=== PATIENT | male | born 1980 | race Caucasian/White ===

== ENCOUNTER 2018-07-28 22:02 | Emergency (ER) | payer OTHER ==
[~2018-07-28] VITALS: Ht 165.1 cm; Wt 74.0 kg
[2018-07-28] MEDS ORDERED: METOCLOPRAMIDE HCL 10MG/2ML VIAL IV ONE (22:45)
[2018-07-28] MEDS ORDERED: VISCOUS LIDOCAINE 2% 15 ML UDC PO ONE (23:00)
[2018-07-28] MEDS ORDERED: MAGNESIUM/ALUMINUM HYDROXIDE/SIMETHICONE 30ML UDC PO ONE (23:00)
[2018-07-28 23:33] LABS: BASOPHILS % 0.2 % (0.0-2.0); EOSINOPHILS % 0.4 % (0.0-5.0); HEMOGLOBIN. 16.5 g/dL (14.0-18.0); LYMPHOCYTES % 25.5 % (20.0-50.0); MEAN CORPUSCULAR HEMOGLOBIN 31.8 pg (28.0-32.0); MEAN PLATELET VOLUME 9.4 fl (7.4-10.4); NEUTROPHILS % 65.9 % (40.0-76.0); PLATELET 226 x1000/uL (130-400); RED BLOOD CELL COUNT 5.21 mill/uL (4.7-6.1); RED CELL DISTRIBUTION WIDTH 12.8 % (11.6-14.6)
[2018-07-28 23:38] LABS: CHLORIDE 105 mEq/L (98-107)
[2018-07-29 01:36] VITALS: BP 112/61
[2018-07-29] MEDS ORDERED: CHLORPROMAZINE HCL 25MG/1ML AMP IM ONE (02:15)
== END 2018-07-29 05:00 | disposition home or self-care (01) ==
LOC: ER 22:02
DX: R06.6 Hiccough (principal); R07.9 Chest pain, unspecified; F17.200 Nicotine dependence, unspecified, uncomplicated
CPT/HCPCS: 36415; 71046; 80053; 83690; 85025; 93005; 96374; 99284; J2765

== ENCOUNTER 2020-04-11 07:02 | Emergency (ER) | payer OTHER ==
[~2020-04-11] VITALS: Ht 165.1 cm; Wt 77.0 kg
[2020-04-11] MEDS ORDERED: IBUPROFEN 800MG TABLET PO ONE (07:30)
[2020-04-11] MEDS ORDERED: IBUP-2030 MT (07:55)
[2020-04-11] MEDS ORDERED: OXYC-100 MT (07:55)
[2020-04-11 09:02] VITALS: BP 111/75
== END 2020-04-11 09:09 | disposition home or self-care (01) ==
LOC: ER 07:22
DX: S62.342A Nondisplaced fracture of base of third metacarpal bone, right hand, initial encounter for closed fracture (principal); Y04.0XXA Assault by unarmed brawl or fight, initial encounter; Y93.89 Activity, other specified; Y92.9 Unspecified place or not applicable
CPT/HCPCS: 29125; 73130; 99283